=== PATIENT | male | born 1980 | race Two or more races ===

== ENCOUNTER 2025-05-04 11:37 | Outpatient (CLI) | payer SELFPAY ==
[2025-05-04 12:13] LABS: Chloride 104 mmol/L (98-107); Potassium 4.3 mmol/L (3.5-5.1); Sodium 138 mmol/L (136-145)
[2025-05-04 12:14] LABS: Anion Gap 6 (5-15); Calcium 9.7 mg/dL (8.7-10.4); Carbon Dioxide 28 mmol/L (20-31)
[2025-05-04 12:19] LABS: BUN/Creatinine Ratio 12.0 (10.0-20.0); Blood Urea Nitrogen 12 mg/dL (9-23); Glucose 88 mg/dL (74-106)
== END 2025-05-04 17:00 | disposition home or self-care (01) ==
LOC: LAB 11:37
PROVIDERS: ATTEND Urology
DX: R30.0 Dysuria (principal)
CPT/HCPCS: 36415; 80048; 84153

== ENCOUNTER 2025-05-30 07:00 | Outpatient (CLI) | payer SELFPAY ==
[2025-05-30 08:58] LABS: Blood Urea Nitrogen 8.0 mg/dL (9-23)
== END 2025-05-30 17:00 | disposition home or self-care (01) ==
LOC: LAB 07:00
PROVIDERS: ATTEND Urology
DX: R30.0 Dysuria (principal)
CPT/HCPCS: 36415; 82565; 84520